=== PATIENT | female | born 1940 | race Caucasian/White ===

== ENCOUNTER → 2018-07-15 | Outpatient (CLI) | payer OTHER | LOC: ZCOL.LAB 16:20 | DX: Z01.812 Encounter for preprocedural laboratory examination (principal); Z86.14 Personal history of Methicillin resistant Staphylococcus aureus infection ==

== ENCOUNTER → 2018-07-18 | Outpatient (CLI) | payer MEDICARE | LOC: COL.VAS 11:55 | DX: Z01.818 Encounter for other preprocedural examination (principal); M79.605 Pain in left leg; M79.604 Pain in right leg; Z86.718 Personal history of other venous thrombosis and embolism ==

== ENCOUNTER 2018-12-25 15:45 | Emergency (ER) | payer MEDICARE ==
[~2018-12-25] VITALS: Ht 149.9 cm; Wt 99.1 kg
[~2018-12-25 15:45] MED LIST: COLACE 100100 MG/CAP PO; ELIQUIS 5MG PO; ROXICODONE 55 MG/TAB PO; TOPROL XL 25MG25 MG PO
[2018-12-25 15:57] VITALS: TEMP 96.9
[2018-12-25 17:53] VITALS: BP 161/69; PULSE 68
== END 2018-12-25 17:53 | disposition home or self-care (01) ==
LOC: COL.ER 15:45
DX: M71.21 Synovial cyst of popliteal space [Baker], right knee (principal); I10 Essential (primary) hypertension; Z90.49 Acquired absence of other specified parts of digestive tract; Z86.718 Personal history of other venous thrombosis and embolism

== ENCOUNTER 2019-01-07 15:52 | Inpatient (IN) | payer MEDICARE ==
[~2019-01-07] VITALS: Ht 149.9 cm; Wt 97.5 kg
[2019-02-17] VITALS (11 sets, daily range): BP systolic 125–161; BP diastolic 52–80; PULSE 62–74; TEMP 97.5–98.3
[2019-02-17] MEDS ORDERED: MULTI VITAMINS1 TAB PO (05:40)
[2019-02-18] VITALS: BP 170/73; PULSE 77; TEMP 98.1
[2019-02-18 04:00] VITALS: BP 127/50; PULSE 72; TEMP 98.3
[2019-02-18 06:32] LABS: HEMATOCRIT 40.1 % (37.0-47.0); HEMOGLOBIN 13.3 g/dl (12.5-16.0)
[2019-02-18] MEDS ORDERED: ELIQUIS 5MG PO (07:05)
[2019-02-18] MEDS ORDERED: ROXICODONE 55 MG/TAB PO (07:06)
[2019-02-18] MEDS ORDERED: ULTRAM 50MG TAB50 MG PO (07:06)
[2019-02-18] MEDS ORDERED: TYLENOL 500MG500 MG PO (07:06)
[2019-02-18] MEDS ORDERED: COLACE 100100 MG/CAP PO (07:07)
[2019-02-18 08:07] VITALS: BP 140/54; PULSE 78; TEMP 97.6
[2019-02-18 11:52] VITALS: BP 138/59; PULSE 79; TEMP 97.6
[2019-02-18 16:50] VITALS: BP 118/48; PULSE 66; TEMP 97.8
[2019-02-18 20:26] VITALS: BP 135/52; PULSE 65; TEMP 97.4
[2019-02-19 00:38] VITALS: BP 131/51; PULSE 72; TEMP 97.6
[2019-02-19 04:50] VITALS: BP 151/61; PULSE 69; TEMP 98.1
[2019-02-19 06:54] LABS: HEMATOCRIT 38.9 % (37.0-47.0); HEMOGLOBIN 12.7 g/dl (12.5-16.0)
[2019-02-19 08:17] VITALS: BP 141/61; PULSE 68; TEMP 97.6
[2019-02-19 12:36] VITALS: BP 145/56; PULSE 67; TEMP 98.2
[2019-02-19 16:12] VITALS: BP 137/49; PULSE 71; TEMP 98.1
== END 2019-02-19 18:06 | disposition home or self-care (01) | DRG 470 ==
LOC: JCC 02-17 05:08
PROVIDERS: ADMIT Orthopaedic Surgery
PROC: 0SRC0J9 Replacement of Right Knee Joint with Synthetic Substitute, Cemented, Open Approach (ICD-10-PCS; principal; 2019-02-17 07:30)
DX: M17.11 Unilateral primary osteoarthritis, right knee (principal); Z88.0 Allergy status to penicillin; Z88.8 Allergy status to other drugs, medicaments and biological substances; Z88.6 Allergy status to analgesic agent; Z88.4 Allergy status to anesthetic agent; Z91.041 Radiographic dye allergy status; I10 Essential (primary) hypertension; Z96.642 Presence of left artificial hip joint; Z96.652 Presence of left artificial knee joint
CPT/HCPCS: A9284; C1776; J0690; J1100; J1170; J2270; J2405; J2704; J3010; J3370; J7030; J7050; J7120

== ENCOUNTER → 2020-03-30 | Outpatient (CLI) | payer MEDICARE ==
[~2020-03-30] MED LIST changes: +MULTI VITAMINS1 TAB PO; +TYLENOL 500MG500 MG PO; +ULTRAM 50MG TAB50 MG PO
== END ==
LOC: COL.RAD 08:23
DX: M48.02 Spinal stenosis, cervical region (principal); M50.322 Other cervical disc degeneration at C5-C6 level; M51.36 Other intervertebral disc degeneration, lumbar region; M47.816 Spondylosis without myelopathy or radiculopathy, lumbar region; M48.061 Spinal stenosis, lumbar region without neurogenic claudication

== ENCOUNTER 2024-04-23 09:27 | Day surgery (SDC) | payer MEDICARE ==
[~2024-04-23] VITALS: Ht 149.9 cm; Wt 105.0 kg
[2024-04-23] VITALS (11 sets, daily range): BP systolic 134–189; BP diastolic 56–86; PULSE 47–80; TEMP 98.8
[2024-04-23] MEDS ORDERED: diphenhydrAMINE 50 MG/ML 1 ML VIAL IV ONE (10:00)
[2024-04-23] MEDS ORDERED: 1/2 NS 1,000 ML IV SCH (10:00)
[2024-04-23] MEDS ORDERED: methylPREDNISolone Sod Succ 125 MG/2 ML VIAL IV ONE (10:00)
[2024-04-23] MEDS ORDERED: Clopidogrel 300 MG DOSE (75 mg x 4 tabs) PO ONE (10:15)
[2024-04-23] MEDS ORDERED: VITAMIND3 5000 PO (10:27)
[2024-04-23] MEDS ORDERED: ALLEGRA 180MG180 MG PO (10:41)
[2024-04-23 10:51] LABS: HEMATOCRIT 42.9 % (37.0-47.0); HEMOGLOBIN 14.4 g/dl (12.5-16.0); MEAN CELL VOLUME 94 fl (80.0-100.0); MEAN CORPUSCULAR HEMOGLOBIN 31 pg (27-31); MEAN CORPUSCULAR HGB CONC 34 g/dl (33.0-37.0); MEAN PLATELET VOLUME 10.3 fl (7.4-10.4); PLATELET COUNT 170 K/mm3 (130-400); RED BLOOD COUNT 4.58 M/mm3 (4.10-5.30); REDCELL DISTRIBUTION WIDTH-CV 13.4 % (11.5-14.5)
[2024-04-23 10:57] LABS: PARTIAL THROMBOPLASTIN TIME 28.2 SECONDS (26.0-37.0); PROTHROMBIN TIME 11.2 SECONDS (9.7-12.8)
[2024-04-23 11:16] LABS: CREATININE, serum 1.05 mg/dL (0.57-1.11); POTASSIUM 4.2 mEq/L (3.5-4.5)
--- NOTE | 2024-04-23 13:12 | NUR ---
See Merge report for procedural sedation/notes
[2024-04-23] MEDS ORDERED: Verapamil 2.5 MG/ML 2 ML VIAL IA SCH (13:14)
[2024-04-23] MEDS ORDERED: Heparin 1,000 UNITS/ML 10 ML Multi-Dose VIAL IV SCH (13:15)
[2024-04-23] MEDS ORDERED: Nitroglycerin 100 MCG/ML (Cath Lab) 10 ML VIAL IA SCH (13:15)
[2024-04-23] MEDS ORDERED: Iohexol 350 - 100 ML VIAL INCOR ONE (13:19)
[2024-04-23] MEDS ORDERED: fentaNYL 50 MCG/ML 2 ML VIAL IV SCH (13:23)
[2024-04-23] MEDS ORDERED: Midazolam 2 MG/2 ML VIAL IV SCH (13:23)
--- NOTE | 2024-04-23 16:18 | NUR ---
DC instructions reviewed with pt and daughter, both express understanding. Pt has rested comfortably during recovery period. Assisted to restroom x1 after 1 hr bedrest period was completed. Ate meal tray. Air was removed from TR band in 2 ml increments, no bleeding or complications at site. Rt radial access site dressed with folded gauze and 2x2. DC instructions reviewed with pt and daughter, both express understanding. IV DC'd, site wrapped with coban. Daughter assisted pt to dress. She is then assisted out by wheelchair with belongings to daughter's car. Pt free of complaints at discharge.
== END 2024-04-23 16:18 | disposition home or self-care (01) ==
LOC: COL.CAR 09:27
PROVIDERS: Internal Medicine Cardiovascular Disease
DX: I47.20 Ventricular tachycardia, unspecified (principal)
CPT/HCPCS: J1200; J1644; J2250; J2919; J3010; Q9967